=== PATIENT | male | born 1960 | race Caucasian/White ===

== ENCOUNTER 2018-06-07 10:57 | Emergency (ER) | payer OTHER ==
[~2018-06-07] VITALS: Ht 182.9 cm; Wt 113.4 kg
[2018-06-07] MEDS ORDERED: FLOMAX0.4 MG PO (11:10)
[2018-06-07] MEDS ORDERED: VIAGRA100 MG PO (11:10)
[2018-06-07] MEDS ORDERED: VALTREX 500 MG500 M1 PO (11:11)
[2018-06-07] MEDS ORDERED: PROTONIX40 M1 PO (11:11)
[2018-06-07] MEDS ORDERED: TESTONE CI200 MG/1 M IM (11:11)
[2018-06-07] MEDS ORDERED: NEURONTIN 300300 M1 PO (11:11)
[2018-06-07] MEDS ORDERED: NORCO 7.5-3251 EACH PO (11:11)
[2018-06-07] MEDS ORDERED: LISINOPRIL10 MG PO (11:12)
[2018-06-07] MEDS ORDERED: LOPRESSOR50 PO (11:12)
[2018-06-07] MEDS ORDERED: MOBIC15 MG PO (11:12)
[2018-06-07] MEDS ORDERED: SIMVASTATIN40 MG PO (11:12)
[2018-06-07] MEDS ORDERED: SPIRONOLACTONE25 M1 PO (11:12)
[2018-06-07] MEDS ORDERED: LASIX 40 MG TAB40 M2 PO (11:12)
[2018-06-07] MEDS ORDERED: DOXYCYCLINE 10100 MG PO (11:13)
[2018-06-07] MEDS ORDERED: XARELTO20 MG PO (11:13)
[2018-06-07] MEDS ORDERED: FLEXERIL PO (11:13)
[2018-06-07] MEDS ORDERED: FELODIPINE 5 MG5 M1 PO (11:13)
[2018-06-07] MEDS ORDERED: BACTRIM DS TAB1 EACH PO (12:19)
[2018-06-07 12:28] VITALS: BP 141/95
== END 2018-06-07 12:29 | disposition home or self-care (01) ==
LOC: M.ERS 10:57
DX: S81.812A Laceration without foreign body, left lower leg, initial encounter (principal); I10 Essential (primary) hypertension; I48.91 Unspecified atrial fibrillation; M19.90 Unspecified osteoarthritis, unspecified site; F17.200 Nicotine dependence, unspecified, uncomplicated; Z96.651 Presence of right artificial knee joint; Z88.0 Allergy status to penicillin; W26.8XXA Contact with other sharp object(s), not elsewhere classified, initial encounter; Y93.89 Activity, other specified; Y92.89 Other specified places as the place of occurrence of the external cause; Y99.8 Other external cause status

== ENCOUNTER → 2020-09-01 | Outpatient (CLI) | payer OTHER ==
[~2020-09-01] MED LIST: BACTRIM DS TAB1 EACH PO; DOXYCYCLINE 10100 MG PO; FELODIPINE 5 MG5 M1 PO; FLEXERIL PO; FLOMAX0.4 MG PO; LASIX 40 MG TAB40 M2 PO; LISINOPRIL10 MG PO; LOPRESSOR50 PO; MOBIC15 MG PO; NEURONTIN 300300 M1 PO; NORCO 7.5-3251 EACH PO; PROTONIX40 M1 PO; SIMVASTATIN40 MG PO; SPIRONOLACTONE25 M1 PO; TESTONE CI200 MG/1 M IM; VALTREX 500 MG500 M1 PO; VIAGRA100 MG PO; XARELTO20 MG PO
--- NOTE | 2020-09-01 11:17 | 2DMMODE ---
[place] [address] 2 D/M-MODE ECHOCARDIOGRAM Name: HERB STOCKTON Room: [facility]#: [id number] Admission: 09/01/20 Attend Phys: Jes Garduno, Discharge: Date of : 62 Date of Service: 09/01/20 1117 Report #: [id number] THIS REPORT FOR: cc: Korey Mcadams,Henrique Fung MD [facility] ~ APPROVED REPORT Study performed: 09/01/2020 07:48:54 EXAM: Comprehensive 2D, Doppler, and color-flow Echocardiogram Patient Location: Out-Patient BSA: 2.46 HR: 99 bpm BP: 152/78 mmHg Other Information Study Quality: Fair Indications Dyspnea 2D Dimensions IVSd: 11.28 (7-11mm) LVOT Diam: 20.03 (18-24mm) LVDd: 49.24 mm PWd: 10.54 (7-11mm) Ascending Ao: 34.61 (22-36mm) LVDs: 30.87 (25-40mm) Aortic Root: 25.19 mm Volumes Left Atrial Volume (Systole) LA ESV Index: 24.40 mL/m2 Aortic Valve AoV Peak Jed.: 1.05 m/s AO Peak Gr.: 4.38 mmHg LVOT Max P.40 mmHg AO Mean Gr.: 2.41 mmHg LVOT Mean P.04 mmHg LVOT Max V: 0.77 m/s AO V2 VTI: 14.86 cm LVOT Mean V: 0.46 m/s FRANCESCA (VTI): 2.48 cm2 LVOT V1 VTI: 11.69 cm Mitral Valve MV Decel. Time: 136.75 [place] [address] 2 D/M-MODE ECHOCARDIOGRAM Name: HERB STOCKTON Room: [facility]#: [id number] Admission: 09/01/20 Attend Phys: Jes Garduno, Discharge: Date of : 62 Date of Service: 09/01/20 1117 Report #: [id number] MV PHT: 39.66 ms MVA (PHT): 5.55 cm2 TDI Medial E' Jed.: 0.11 m/s Lateral E' Jed.: 0.13 m/s Pulmonary Valve PV Peak Jed.: 0.54 m/s PV Peak Gr.: 1.16 mmHg Tricuspid Valve RAP Estimate: 5.00 mmHg TR Peak Gr.: 12.05 mmHg RVSP: 17.05 mmHg PA Pressure: 17.05 mmHg Left Ventricle The left ventricle is normal size. There is normal LV segmental wall motion. There is normal left ventricular wall thickness. Left ventricular systolic function is normal. The left ventricular ejection fraction is within the normal range. LVEF is 50-55%. This study is not technically sufficient to allow evaluation of the LV diastolic function due to atrial fibrillation. Right Ventricle The right ventricle is normal size. The right ventricular systolic function is normal. Atria The left atrium size is normal. The right atrium size is normal. Aortic Valve The aortic valve is normal in structure. The aortic valve is not well visualized. No aortic regurgitation is present. There is no aortic valvular stenosis. Mitral Valve The mitral valve is normal in structure. Mild mitral regurgitation. No evidence of mitral valve stenosis. Tricuspid Valve The tricuspid valve is normal in structure estimated pa pressure 24 mm Hg Mild tricuspid regurgitation. Pulmonic Valve Pulmonic valve is not well visualized. There [place] [address] 2 D/M-MODE ECHOCARDIOGRAM Name: HERB STOCKTON Room: [facility]#: [id number] Admission: 09/01/20 Attend Phys: Jes Garduno, Discharge: Date of : 62 Date of Service: 09/01/20 1117 Report #: [id number] regurgitation. Great Vessels The aortic root is normal in size. IVC is normal in size and collapses >50% with inspiration. Pericardium There is no pericardial effusion. <Conclusion> LVEF is 50-55%. Mild mitral regurgitation. The tricuspid valve is normal in structure estimated pa pressure 24 mm Hg <ELECTRONICALLY SIGNED> By: Henrique Muñoz MD, FACC 09/01/201116 16 16 Henrique Muñoz MD, FACC /INF
== END ==
LOC: M.CRD 07:31
PROVIDERS: ATTEND Nurse Practitioner Family
DX: I08.1 Rheumatic disorders of both mitral and tricuspid valves (principal)